=== PATIENT | male | born 1975 | race Caucasian/White ===

== ENCOUNTER 2016-07-30 15:20 | Emergency (ER) | payer OTHER ==
[~2016-07-30 15:20] MED LIST: BACTRIM DS TAB1 EAC2 PO; ERYTHROMYCIN3.5 GM OP; NO HOME MEDS; NORCO 5/3251 TAB PO; PERCOCET 5/3251 TAB PO
[2016-07-30] MEDS ORDERED: BACTRIM DS TAB1 EAC2 PO (16:14)
== END 2016-07-30 16:25 ==
LOC: EDMED 15:20
DX: S41.111D Laceration without foreign body of right upper arm, subsequent encounter (principal); X58.XXXD Exposure to other specified factors, subsequent encounter